=== PATIENT | male | born 2000 | race Caucasian/White ===

== ENCOUNTER 2019-02-23 21:54 | Emergency (ER) | payer OTHER ==
[~2019-02-23] VITALS: Ht 182.9 cm; Wt 148.8 kg
[2019-02-23 21:57] VITALS: BP 155/91
--- NOTE | 2019-02-23 22:01 | NUR ---
Pt taken to bed 4. Report given to Dominic ELLER.
--- NOTE | 2019-02-23 22:11 | NUR ---
PT TO ED WITH C/O COLD S/S X 2 DAYS. PT TAKING OTC NYQUIL AND THERAFLU WITHOUT RELIEF OF SYMPTOMS. PT DENIES ANY CP/SOB. LUNG SOUNDS CLEAR TO ASCULTATION. NO OBVIOUS DISTRESS NOTED. PT ABLE TO SPEAK IN CLEAR SENTENCES WITHOUT DIFFICULTY. PT PLACED INTO BED, PENDING MD NOVA.
[2019-02-23] MEDS ORDERED: ONDANSETRON 4 MG ODT PO ONE (22:45)
--- NOTE | 2019-02-23 23:02 | NUR ---
PT TOLERATED PO CHALLENGE WELL. NO N/V.
[2019-02-23 23:07] VITALS: BP 143/82
== END 2019-02-23 23:01 | disposition home or self-care (01) ==
LOC: MED 21:54
DX: B34.9 Viral infection, unspecified (principal); H66.91 Otitis media, unspecified, right ear; R19.7 Diarrhea, unspecified; Z98.890 Other specified postprocedural states
CPT/HCPCS: 99283; Q0162

== ENCOUNTER 2022-08-11 07:27 | Emergency (ER) | payer OTHER ==
[~2022-08-11] VITALS: Ht 188 cm; Wt 158.8 kg
[2022-08-11 07:34] VITALS: BP 156/87
--- NOTE | 2022-08-11 07:39 | NUR ---
PT AMBULATED TO ROOM 6
--- NOTE | 2022-08-11 07:40 | NUR ---
22YO MALE PT C/O SHARP R EAR PAIN X5DAYS. REPORTS SUDDEN CONSTANT ONSET W/ PAIN AT MOST ON TOUCH. NOTES DECREASE IN HEARING AND OCCASIONAL RINGING. EAR PRESENTS CLEAR W/O SWELLING . DENIES INJURY , N/V/D, DIZZINESS , CHEST PAIN , SOB OR TAKING MEDICATION FOR PAIN. PT AAOX4, NO VISIBLE DISTRESS. RSPIRATIONS EVEN AND UNLABORED HX:DENIES ALLERGIES: CHLORHEXIDINE GLUCONATE, PRAMOXINE HCL, RONIT,MYCIN SULFATE, BACITRACIN ZINC, NEOMYCIN SULFATE, POLYMYCIN B SULFATE, CLINDAMYCIN, PRAMAXINE, IODINE, NEOSPORINE
--- NOTE | 2022-08-11 07:40 | NUR ---
Note undone in EDM - 08/11/22 at 0807 by PHSEP 22YO MALE PT C/O SHARP R EAR PAIN X5DAYS. REPORTS SUDDEN CONSTANT ONSET W/ PAIN AT MOST ON TOUCH. NOTES DECREASE IN HEARING AND OCCASIONAL RINGING. EAR PRESENTS CLEAR W/O SWELLING . DENIES INJURY , N/V/D, DIZZINESS , CHEST PAIN , SOB OR TAKING MEDICATION FOR PAIN. PT AAOX4, NO VISIBLE DISTRESS. RSPIRATIONS EVEN AND UNLABORED HX:DENIES ALLERGIES:
[2022-08-11] MEDS ORDERED: IBUP-2213 PO (07:53)
[2022-08-11] MEDS ORDERED: CIPR7.5S OT (07:53)
[2022-08-11 07:59] VITALS: BP 156/87
--- NOTE | 2022-08-11 07:59 | NUR ---
Patient discharged with v/s stable. Written and verbal after care instructions FOR [facility] given and explained. Patient alert, oriented and verbalized understanding of instructions. Ambulatory with steady gait. All questions addressed prior to discharge. ID band removed. Patient advised to follow up with PMD. Rx of IBUPROFEN AND CIPRODEX OTIC SUSPENSION given. . Opportunity to ask questions provided and answered.
--- NOTE | 2022-08-11 08:00 | NUR ---
The patient's care was reviewed and supervised by Iris Blackwood RN.
== END 2022-08-11 07:59 | disposition home or self-care (01) ==
LOC: MED 07:27
DX: H60.501 Unspecified acute noninfective otitis externa, right ear (principal); Z79.899 Other long term (current) drug therapy; Z88.8 Allergy status to other drugs, medicaments and biological substances; Z88.1 Allergy status to other antibiotic agents
CPT/HCPCS: 99283

== ENCOUNTER 2022-08-26 07:15 | Emergency (ER) | payer OTHER ==
[~2022-08-26] VITALS: Ht 188 cm; Wt 154.2 kg
[~2022-08-26 07:15] MED LIST: CIPR7.5S OT; IBUP-2213 PO
[2022-08-26 07:24] VITALS: BP 132/80
--- NOTE | 2022-08-26 07:26 | NUR ---
Patient ambulated to bed 8.
--- NOTE | 2022-08-26 07:38 | NUR ---
Dr. Carreno evaluating patient at bedside.
--- NOTE | 2022-08-26 07:39 | NUR ---
22 y/o male bib self with c/o bug bite x 7 days. Patient is noted with redness and small amount of swelling to right elbow. Patient has pain when moving or palpation to righ elbow. Patient is unsure what bit him. Denies fever, chills or SOB. Medical History: Denies ALLERGY: BACITRACIN, CLINDAMYCIN, IODINE, PRAMOXINE
[2022-08-26] MEDS ORDERED: CEPH500C16 PO (07:41)
--- NOTE | 2022-08-26 07:52 | NUR ---
Patient discharged with v/s stable. Written and verbal after care instructions given. Patient alert, oriented and verbalized understanding of instructions. Ambulatory with steady gait. All questions addressed prior to discharge. ID band removed. Patient advised to follow up with PMD. Rx of Keflex given. Opportunity to ask questions provided and answered.
--- NOTE | 2022-08-26 07:58 | NUR ---
The patient's care was reviewed and supervised by ED Agency Nurse 8, RN, RN.
== END 2022-08-26 07:52 | disposition home or self-care (01) ==
LOC: MED 07:15
DX: L03.113 Cellulitis of right upper limb (principal)
CPT/HCPCS: 99283

== ENCOUNTER 2022-10-05 15:43 | Emergency (ER) | payer OTHER ==
[~2022-10-05] VITALS: Ht 180.3 cm; Wt 157.9 kg
[~2022-10-05 15:43] MED LIST changes: +CEPH500C16 PO
[2022-10-05 16:10] VITALS: BP 143/77
--- NOTE | 2022-10-05 16:13 | NUR ---
PATIENT PRESENTS TO THE ED WITH SHORTNESS OF BREATH, COUGH AND HEADACHE/SORE THROAT X 4 DAYS. PATIENT IS AFEBRILE, DENIES TAKING THE FLU VACCINE. ALERT AND ORIENTED X 4.
--- NOTE | 2022-10-05 16:20 | NUR ---
22 y/o amle, c/o cough, sore throat, congestion x3 days. denies any wheezing, chest pain, shortness of breath, difficulty breathing, nausea, vomiting, diarrhea, rash. Denies any ill contacts or any recent travel. a&ox4, ambulates with steady gait. pmh: denies allergy: see list
[2022-10-05] MEDS ORDERED: IBUP-1842 PO (16:54)
[2022-10-05] MEDS ORDERED: BPM/118S31 PO (16:54)
--- NOTE | 2022-10-05 17:05 | NUR ---
Patient discharged with v/s stable. Written and verbal after care instructions given. Patient alert, oriented and verbalized understanding of instructions. Ambulatory with steady gait. All questions addressed prior to discharge. ID band removed. Patient advised to follow up with PMD. Rx of Bromfed DM Cough and Ibuprofen given. Opportunity to ask questions provided and answered. WORK NOTE HANDED TO PATIENT.
--- NOTE | 2022-10-05 19:23 | NUR ---
The patient's care was reviewed and supervised by Sammi Presley, RN, RN.
[2022-10-06] MEDS ORDERED: PRED20TA5 PO (08:34)
[2022-10-06] MEDS ORDERED: ALBU0.0912 IH (08:34)
== END 2022-10-05 17:05 | disposition home or self-care (01) ==
LOC: MED 15:43
DX: J06.9 Acute upper respiratory infection, unspecified (principal); Z20.822 Contact with and (suspected) exposure to COVID-19; Z79.899 Other long term (current) drug therapy; Z98.890 Other specified postprocedural states; Z88.1 Allergy status to other antibiotic agents; Z88.8 Allergy status to other drugs, medicaments and biological substances
CPT/HCPCS: 99283

== ENCOUNTER 2022-10-06 07:22 | Emergency (ER) | payer OTHER ==
[~2022-10-06] VITALS: Ht 188 cm; Wt 157.4 kg
[~2022-10-06 07:22] MED LIST changes: +BPM/118S31 PO; +IBUP-1842 PO
[2022-10-06 07:44] VITALS: BP 139/92
--- NOTE | 2022-10-06 07:45 | NUR ---
22 y/o male, c/o cough and sob. pt was seen here last night and given pseudophed, states it is not working and would like to be reevaluated. pmh: denies allergy: neosporin, iodine, clindamycin, bacitracin, pramoxine med: Pseudoephedrine
[2022-10-06] MEDS ORDERED: ALBUTEROL SULFATE/IPRATROPIU 3 ML SOL IH ONE (08:05)
[2022-10-06] MEDS ORDERED: PRED20TA5 PO (08:34)
[2022-10-06] MEDS ORDERED: ALBU0.0912 IH (08:34)
[2022-10-06 08:58] VITALS: BP 139/92
--- NOTE | 2022-10-06 08:58 | NUR ---
Patient discharged with v/s stable. Written and verbal after care instructions given and explained. Patient alert, oriented and verbalized understanding of instructions. Ambulatory with steady gait. All questions addressed prior to discharge. ID band removed. Patient advised to follow up with PMD. Rx of albuterol, prednisone (sent) given. Patient educated on indication of medication including possible reaction and side effects. Opportunity to ask questions provided and answered. work note given
== END 2022-10-06 08:58 | disposition home or self-care (01) ==
LOC: MED 07:22
DX: J40 Bronchitis, not specified as acute or chronic (principal); Z79.899 Other long term (current) drug therapy; Z88.1 Allergy status to other antibiotic agents; Z88.8 Allergy status to other drugs, medicaments and biological substances
CPT/HCPCS: 71045; 94640; 99283; Q0092

== ENCOUNTER 2023-04-16 11:09 | Emergency (ER) | payer OTHER ==
[~2023-04-16] VITALS: Ht 188 cm; Wt 149.7 kg
[~2023-04-16 11:09] MED LIST changes: +ALBU0.0912 IH; +PRED20TA5 PO
[2023-04-16 11:10] VITALS: BP 136/90; PULSE 86; RESP 20; TEMP 97.1; O2SAT 98
--- NOTE | 2023-04-16 11:18 | NUR ---
PT. WALKED TO BED 07 W/ FAMILY
--- NOTE | 2023-04-16 11:21 | NUR ---
Patient being evaluated by PURA at bedside.
--- NOTE | 2023-04-16 11:40 | NUR ---
Pt bibs for R side facial droop that started this morning around 1040. Pt has an asymetrical smile, droop on R side. Eyebrows and eyes are moving symetrically. Pt is a/o x 4, vss, no ss of acute distress, breathing equal and unlabored, speech clear. No other neuro deficits. has seen pt. Labs drawn and given to lab at bedside. Pt to CT.
[2023-04-16 11:48] LABS: BASOPHILS % (AUTO) 0.6 % (0.0-2.0); EOSINOPHILS # (AUTO) 0.2 K/uL (0-0.4); EOSINOPHILS % (AUTO) 2.9 % (0.0-4.0); HEMATOCRIT 43.3 % (36-52); LYMPHOCYTES # (AUTO) 1.4 K/uL (2.0-11.5); LYMPHOCYTES % (AUTO) 22.5 % (20.5-51.1); MEAN CORPUSCULAR HEMOGLOBIN 26 pg (27-31); MEAN CORPUSCULAR HGB CONC 35 g/dL (33-37); MEAN CORPUSCULAR VOLUME 73.6 fL (80-94); MONOCYTES # (AUTO) 0.4 K/uL (0.8-1.0); MONOCYTES % (AUTO) 6.7 % (1.7-9.3); NEUTROPHILS # (AUTO) 4.3 K/uL (1.8-7.7); NEUTROPHILS % (AUTO) 67.3 % (42.2-75.2); PLATELET COUNT (AUTO) 216 K/uL (140-450); RED BLOOD CELL COUNT(AUTO) 5.88 MIL/uL (4.20-6.10); RED CELL DISTRIBUTION WIDTH 15.2 % (11.6-13.7); WHITE BLOOD COUNT (AUTO) 6.4 K/uL (4.8-10.8)
[2023-04-16 12:19] LABS: ALBUMIN 4.2 g/dL (3.4-5.0); ANION GAP 12.6 (8-16); ASPARTATE AMINOTRANSFERASE 27 U/L (15-37); CARBON DIOXIDE 28.3 mmol/L (21-32); CHLORIDE 105 mmol/L (98-107); CREATININE 0.9 mg/dL (0.6-1.3); GFR ARICAN-AMERICAN 134 mL/min (>90); GLUCOSE 93 mg/dL (74-106); POTASSIUM 3.9 mmol/L (3.5-5.1); SODIUM SERUM 142 mmol/L (136-145); UREA NITROGEN, BLOOD 14 mg/dL (7-18)
[2023-04-16 13:12] LABS: APPEARANCE,URINE CLEAR (CLEAR); BILIRUBIN,URINE NEGATIVE (NEGATIVE); BLOOD, URINE NEGATIVE (NEGATIVE); COLOR,URINE YELLOW (YELLOW); LEUKOCYTE ESTERASE ,URINE NEGATIVE (NEGATIVE); NITRITE, URINE NEGATIVE (NEGATIVE); PH,URINE 6.5 (5.0-9.0); UGLUCOSE NEGATIVE (NEGATIVE)
[2023-04-16] MEDS ORDERED: ASPIRIN 325 MG TAB PO ONE (13:20)
[2023-04-16 14:34] LABS: CHOL/HDL RATIO 3.6 (1-4.5)
--- NOTE | 2023-04-16 16:32 | NUR ---
Report given to RAFITA Magana at [facility]. Pt is in stable condition. Vss, no ss of acute distress, breathing equal and unlabored, speech clear, on monitor. Family visiting at bedside.
[2023-04-16 17:10] VITALS: BP 135/83; PULSE 89; RESP 19; TEMP 98.3; O2SAT 96
== END 2023-04-16 17:04 | disposition critical access hospital (66) ==
LOC: MED 11:09
DX: R29.810 Facial weakness (principal); E66.3 Overweight; Z98.890 Other specified postprocedural states; Z79.899 Other long term (current) drug therapy; Z79.1 Long term (current) use of non-steroidal anti-inflammatories (NSAID); Z79.2 Long term (current) use of antibiotics; Z88.1 Allergy status to other antibiotic agents; Z88.8 Allergy status to other drugs, medicaments and biological substances
CPT/HCPCS: 36415; 70450; 71045; 80053; 81003; 82948; 84484; 85025; 93005; 99291

== ENCOUNTER 2023-06-15 00:25 | Emergency (ER) | payer OTHER ==
[~2023-06-15] VITALS: Ht 182.9 cm; Wt 158.8 kg
[2023-06-15 00:30] VITALS: BP 137/80; PULSE 90; RESP 17; TEMP 97.5; O2SAT 98
== END 2023-06-15 01:30 | disposition left against medical advice (07) ==
LOC: MED 00:25
DX: R11.2 Nausea with vomiting, unspecified (principal); R51.9 Headache, unspecified; R19.7 Diarrhea, unspecified; Z53.21 Procedure and treatment not carried out due to patient leaving prior to being seen by health care provider
CPT/HCPCS: 99281